=== PATIENT | male | born 1980 | race Caucasian/White ===

== ENCOUNTER 2018-11-03 10:18 | Emergency (ER) | payer OTHER, SELFPAY ==
[~2018-11-03 10:18] MED LIST: Iopamidol 370 76% 100 ML VIAL ONE
--- NOTE | 2018-11-03 11:51 | CT ---
FCT of the soft tissues of the neck INDICATION: History of fall with injury to the neck with difficulty speaking; patient reportedly is w orse and "hurts to talk". COMPARISON: None FINDINGS: There is an enhancing soft tissue mass within the left piriform sinus, contacting the left aryepiglottic fold, measuring approximately 3 cm x 1.5 cm. This lesion appears to extend down to the level of the false vocal cords on the left. The true vocal cords appear symmetric. No soft tissue con tusion is evident. No pathologically enlarged lymph nodes are evident. The remaining aerodigestive tract appears within normal limits. Visualized intracranial contents appear within normal limits. The visualized nasopharynx, parapharyng eal space, parotid, submandibular and thyroid glands are normal-appearing. The lung apices are clear. There is mild disc degenerative disease of the cervical spine. No acute osseous abnormality is eviden t. IMPRESSION: Soft tissue mass seen within the inferior left piriform sinus involving the left aryepigl ottic fold is suspicious for malignancy. ENT consultation and direct visualization is recommended.
== END 2018-11-03 12:45 | disposition home or self-care (01) ==
LOC: SCSER 10:18
DX: S10.93XA Contusion of unspecified part of neck, initial encounter (principal); J34.89 Other specified disorders of nose and nasal sinuses; W01.198A Fall on same level from slipping, tripping and stumbling with subsequent striking against other object, initial encounter
CPT/HCPCS: 70491; Q9967

== ENCOUNTER 2019-01-17 16:08 | Outpatient (CLI) | payer OTHER ==
--- NOTE | 2019-01-17 16:53 | RAD ---
Exam: Left RIBS 2 views HISTORY: Acute low back pain. Patient fell from 9 feet, 3 weeks ago FINDINGS: No fracture. No cortical irregularity. No periosteal action. IMPRESSION: Unremarkable left ribs 2 views.
== END 2019-01-17 16:09 | disposition home or self-care (01) ==
LOC: SCSRAD 16:08
PROVIDERS: ATTEND Family Medicine
DX: M54.5 Low back pain (principal)

== ENCOUNTER 2021-02-07 08:13 | Outpatient (CLI) | payer OTHER | END 2021-02-07 08:14 | disposition home or self-care (01) | LOC: TBSIIMAG 08:13 | PROVIDERS: ATTEND Neurological Surgery | DX: M51.16 Intervertebral disc disorders with radiculopathy, lumbar region (principal); M51.17 Intervertebral disc disorders with radiculopathy, lumbosacral region | CPT/HCPCS: 72148 ==

== ENCOUNTER 2025-05-31 08:48 | Outpatient (CLI) | payer BC | END 2025-05-31 08:49 | disposition home or self-care (01) | LOC: SCSMRI 08:48 | PROVIDERS: ATTEND Family Medicine Sports Medicine | DX: S29.011A Strain of muscle and tendon of front wall of thorax, initial encounter (principal) | CPT/HCPCS: 71550 ==